=== PATIENT | female | born 2000 | race Hispanic/Latino ===

== ENCOUNTER → 2023-02-28 16:56 | Outpatient (CLI) | payer OTHER, SELFPAY ==
--- NOTE | 2023-02-28 16:59 | DI.US.S_ITS ---
PROCEDURE: US OB <= 14 WEEKS FETUS INDICATIONS: dating and viability, irregular menses OUTSIDE/PRIOR DATING DATA: Last menstrual period (LMP): 12/28/2022. LMP-based estimated date of delivery (ANNA): 10/04/2023. First dating scan (date and location): Not applicable Estimated date of delivery (ANNA) from first dating scan: Not applicable. The calculations are made using the clinical ANNA of 10/04/2023. TECHNIQUE: Real-time scanning was performed of the fetus and maternal pelvic organs, with image documentation. Endovaginal scanning was also performed to better visualize the fetus and maternal ovaries. COMPARISON: None. FINDINGS: Embryo: Single live intrauterine consists of a pole with crown-rump length measuring 2.4 cm corresponding with a 9 week 0 day gestation. Small subchorionic hemorrhage measures 0.7 x 0.5 x 0.6 cm. Normal appearing yolk sac Heart rate: 180 beats per minute Maternal organs: Right ovarian hemorrhagic cyst measures 1.9 x 1.7 x 1.5 cm IMPRESSION: Single live intrauterine consistent with 9 week 0 day gestation. Small perigestational bleed measures 0.7 x 0.5 cm Approved by: Nash Strong M.D. on 03/01/2023 at 17:10
== END ==
PROVIDERS: Referring Provider Obstetrics & Gynecology; Visit Provider Obstetrics & Gynecology
DX: O46.8X1 Other antepartum hemorrhage, first trimester (principal); Z3A.09 9 weeks gestation of pregnancy
CPT/HCPCS: 76801; 76817

== ENCOUNTER 2023-03-04 17:17 | Emergency (ER) | payer OTHER, SELFPAY ==
[2023-03-04 17:49] VITALS: BP 133/72; PULSE 76; RESP 16; TEMP 36.8; O2SAT 99; BMI 24.7
[2023-03-04 19:21] LABS: Add Manual Diff / Slide Review NO; Basophils Absolute Auto 100 /uL (0-100); Basophils Percent Auto 0.9 % (0-2); Eosinophils Absolute Auto 0 /uL (0-450); Eosinophils Percent Auto 0.4 % (2-4); Hematocrit 40.6 % (36-46); Hemoglobin 14.2 g/dL (12.0-16.0); Lymphocytes Absolute Auto 1600 /uL (1100-4500); Lymphocytes Percent Auto 16.8 % (25-40); Mean Corpuscular Hemoglobin 29.3 PG (26-34); Mean Corpuscular Volume 83.9 fL (80-100); Monocytes Absolute Auto 400 /uL (0-900); Neutrophils Absolute Auto 7700 /uL (1500-7000); Neutrophils Percent Auto 77.9 % (50-75); Platelet Count 245 X10^3/uL (150-400); Red Blood Cell Count 4.84 X10^6/uL (4.0-5.2); Red Cell Distribution Width 12.6 % (11.6-14.8); White Blood Cell Count 9.8 X10^3/uL (4.5-11.0)
--- NOTE | 2023-03-04 19:35 | PC.NURSE ---
recvd to Rm 8
[2023-03-04 19:38] LABS: Alanine Aminotransferase 14 IU/L (<35); Albumin 4.2 g/dL (3.5-5.0); Albumin Globulin Ratio 1.2 (1.0-2.8); Alkaline Phosphatase 48 U/L (38-126); Aspartate Aminotransferase 33 IU/L (14-36); BUN Creatinine Ratio 16.7 (6-22); Bilirubin Total 0.5 mg/dL (0.2-1.3); Blood Urea Nitrogen 7 mg/dL (7-17); Calcium 9.6 mg/dL (8.4-10.2); Carbon Dioxide 26 mmol/L (22-32); Chloride 101 mmol/L (98-107); Estimated Glomerular Filt Rate > 60 mL/min (>60); Globulin 3.4 g/dL (1.7-4.1); Glucose 100 mg/dL (70-100); HEMOLYSIS < 15 (0-50); Lipase 38 U/L (23-300); Potassium 3.8 mmol/L (3.4-5.1); Sodium 135 mmol/L (137-145); Total Protein 7.6 g/dL (6.3-8.2)
--- NOTE | 2023-03-04 20:13 | ED.GENADULT ---
HPI - General Adult General Chief complaint: OB/Uterine Contractions Stated complaint: 9 wks , severe cramping, Time Seen by Provider: 03/04/23 20:12 Source: patient Mode of arrival: Family Vehicle History of Present Illness HPI narrative: 23-year-old woman 9 weeks complains of lower abdominal cramping no bleeding and today noted heartburn, chest pain some pain under the right breast. Recent antibiotic course for urinary tract infection. Her was just diagnosed a couple of days ago and she is not yet decided if this is that she is going to continue. She talked to her OBGYN today who recommended coming to the emergency department because of the pelvic cramping and some pain radiating up into the right chest. She notes that she has been having trouble with nausea and vomiting. Has been constipated but did have a bowel movement today. She has not noticed any vaginal discharge or bleeding. She is not currently having any urinary tract symptoms. Related Data Allergies Allergy/AdvReac Type Severity Reaction Status Date / Time No Known Drug Allergies Allergy Verified 03/04/23 17:53 Review of Systems Constitutional Comments: Pertinent positive and negative findings as per HPI Patient History Social History Smoking Status: Never smoker Smoking Status: Never smoker Substance Use Type: does not use Exam Initial Vital Signs Initial Vital Signs: Vital Signs Temperature 98.3 F 03/04/23 17:49 Pulse Rate 76 03/04/23 17:49 Respiratory Rate 16 03/04/23 17:49 Blood Pressure 133/72 03/04/23 17:49 Pulse Oximetry 99 03/04/23 17:49 Oxygen Delivery Method Room Air 03/04/23 17:49 General: Alert appropriate in no acute distress Respiratory: Able to speak in full sentences, no obvious respiratory distress Skin: No obvious rashes, warm and dry Abdomen: Nontender to palpation. No pelvic ring tenderness. No suprapubic tenderness Neurologic: Grossly intact no obvious asymmetries or abnormalities Psych: appropriate insight and affect, cooperative Bedside ultrasound shows a viable single intrauterine fetus with yolk sac still noticeable and heart rate at 162. Pictures were shared with the patient. Course Orders Ordered: ED Orders 03/04/23 18:56 EKG-12 Lead Stat 03/04/23 19:05 Complete Blood Count AUTO DIFF Stat Comprehensive Metabolic Panel Stat HCG Quantitative /Beta subunit Stat Lipase Stat Ondansetron HCl (Ondansetron 4 Mg Odt) 4 mg PO NOW PRN PRN Reason: Nausea And Vomiting Ondansetron HCl (Ondansetron 4 Mg/2 Ml Inj) 4 mg IV NOW PRN PRN Reason: Nausea And Vomiting Vital Signs Vital signs: Vital Signs - 8 hr 03/04/23 17:49 Temperature 98.3 F Pulse Rate 76 Respiratory Rate 16 Blood Pressure 133/72 Pulse Oximetry 99 Oxygen Delivery Method Room Air Medical Decision Making Lab Data 03/04/23 19:05 03/04/23 19:05 Labs: Lab Results 03/04/23 Range/Units 19:05 WBC 9.8 (4.5-11.0) X10^3/uL RBC 4.84 (4.0-5.2) X10^6/uL Hgb 14.2 (12.0-16.0) g/dL Hct 40.6 (36-46) % MCV 83.9 (80-100) fL MCH 29.3 (26-34) PG MCHC 35.0 (30-36) % RDW 12.6 (11.6-14.8) % Plt Count 245 (150-400) X10^3/uL Neut % (Auto) 77.9 H (50-75) % Lymph % (Auto) 16.8 L (25-40) % [place] % (Auto) 4.0 (3-14) % Eos % (Auto) 0.4 L (2-4) % Baso % (Auto) 0.9 (0-2) % Neut # (Auto) 7700 H (2088-4765) /uL Lymph # (Auto) 1600 (4119-3924) /uL [place] # (Auto) 400 (0-900) /uL Eos # (Auto) 0 (0-450) /uL Baso # (Auto) 100 (0-100) /uL Sodium 135 L (137-145) mmol/L Potassium 3.8 (3.4-5.1) mmol/L Chloride 101 (98-107) mmol/L Carbon Dioxide 26 (22-32) mmol/L BUN 7 (7-17) mg/dL Creatinine 0.42 L (0.52-1.04) mg/dL Estimated GFR > 60 (>60) mL/min BUN/Creatinine Ratio 16.7 (6-22) Glucose 100 (70-100) mg/dL Calcium 9.6 (8.4-10.2) mg/dL Total Bilirubin 0.5 (0.2-1.3) mg/dL AST 33 (14-36) IU/L ALT 14 (<35) IU/L Alkaline Phosphatase 48 (38-126) U/L Total Protein 7.6 (6.3-8.2) g/dL Albumin 4.2 (3.5-5.0) g/dL Globulin 3.4 (1.7-4.1) g/dL Albumin/Globulin Ratio 1.2 (1.0-2.8) Lipase 38 (23-300) U/L Urine Dip Bedside Urine Glucose Negative Bedside Urine Bilirubin - Negative Bedside Urine Ketone - Negative Urine Specific [place] 1.010 Bedside Urine Occult Blood - Negative Bedside Urine pH 6.5 Bedside Urine Protein - Negative Bedside Urine Urobilinogen - Negative Bedside Urine Nitrite - Negative Bedside Urine Leukocytes - Negative Esterase Point of care testing: Urine Dip Bedside Urine Glucose Negative Bedside Urine Bilirubin - Negative Bedside Urine Ketone - Negative Urine Specific [place] 1.010 Bedside Urine Occult Blood - Negative Bedside Urine pH 6.5 Bedside Urine Protein - Negative Bedside Urine Urobilinogen - Negative Bedside Urine Nitrite - Negative Bedside Urine Leukocytes - Negative Esterase MDM Narrative Medical decision making narrative: CC: 9 weeks , lower abdominal cramping Complicating co-morbidities: Patient just became aware of her within the last week Data collected from: patient, 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 Bedside ultrasound shows Dukes fetus with a heart rate at 162 Lab Test results independently reviewed as above. Pertinent findings: Point of care urinalysis shows no evidence of urinary tract infection CBC is unremarkable Chemistries are reassuring Discussion: 23-year-old at 9 weeks new diagnosis, constipation nausea and vomiting consistent with early symptoms. She is taking vitamin she does have nausea medication at home. Reassurance is given regarding blood work and bedside ultrasound done today. I suspect that her symptoms are related to constipation and we talked about diet changes as she is able to and adding MiraLax daily. Reassurance is given. Questions are answered and she is safe for discharge Discharge Plan Departure Patient Disposition: Home Clinical Impression: Abdominal cramping Qualifiers: Weeks of gestation: 9 weeks Qualified Code(s): Z3A.09 - 9 weeks gestation of Instructions: DI for Miscarriage, DI for -- Discomforts and Remedies Activity Restrictions/Additional Instructions: Thank you for coming in today Your baby is around 9 weeks and is alive and healthy. Your blood work is very reassuring. There is no evidence of recurrent bladder infection. I suspect some of your symptoms may be related to constipation which is very common in early . I would encourage you to increase the volume of water that you are able to drink, you can add apple juice which can help with constipation dried fruits, applesauce. I would also recommend MiraLax. This is available [id number], the dose is enough to have soft poop. I usually recommend starting with a full cap full a powder in a big glass of water. This is absolutely safe in and just helps your stool stay softer so it is easier to poop. Please do continue your vitamins. You can use the nausea medicine that you have at home as prescribed If you do decide that this is not a that you want to continue, I would recommend [facility] [place]. The address is [address] [place] [address] in [place]. The phone number is [phone] If you find that you are getting worse or develop any new symptoms, please feel free to return to the emergency department for further evaluation. Referrals: Zuly,MD Jose A [Primary Care Provider] - Stand Alone Forms: Patient Portal/API
[2023-03-04 20:43] VITALS: BP 128/76; PULSE 77; RESP 16; O2SAT 99
== END 2023-03-04 20:46 | disposition home or self-care (01) ==
PROVIDERS: Emergency Medicine; Emergency Provider Emergency Medicine
DX: O26.91 Pregnancy related conditions, unspecified, first trimester (principal); R10.9 Unspecified abdominal pain; Z3A.09 9 weeks gestation of pregnancy
CPT/HCPCS: 36415; 80053; 81003; 83690; 84702; 85025; 99283

== ENCOUNTER → 2023-04-12 14:49 | Outpatient (CLI) | payer OTHER, SELFPAY ==
[2023-04-12 16:04] LABS: Add Manual Diff / Slide Review NO; Basophils Absolute Auto 0 /uL (0-100); Basophils Percent Auto 0.3 % (0-2); Eosinophils Absolute Auto 0 /uL (0-450); Eosinophils Percent Auto 0.3 % (2-4); Hematocrit 39.3 % (36-46); Hemoglobin 13.8 g/dL (12.0-16.0); Lymphocytes Absolute Auto 1400 /uL (1100-4500); Lymphocytes Percent Auto 13.4 % (25-40); Mean Corpuscular Hemoglobin 29.5 PG (26-34); Mean Corpuscular Volume 84.3 fL (80-100); Monocytes Absolute Auto 300 /uL (0-900); Monocytes Percent Auto 3.2 % (3-14); Neutrophils Absolute Auto 8300 /uL (1500-7000); Neutrophils Percent Auto 82.8 % (50-75); Platelet Count 249 X10^3/uL (150-400); Red Blood Cell Count 4.67 X10^6/uL (4.0-5.2); Red Cell Distribution Width 12.4 % (11.6-14.8)
[2023-04-14 09:07] LABS: Varicella IgG Antibody 584 index (Immune >165)
[2023-04-16 19:24] LABS: Hepatitis B Surface Antigen NEGATIVE s/c (NEGATIVE)
[2023-04-16 19:31] LABS: HIV 1 & 2 Ab/Ag 4th Gen Combo NEGATIVE (NEGATIVE); Hep C Virus Ab w/Reflex Quant NEGATIVE s/c (NEGATIVE)
[2023-04-17 02:36] LABS: RPR Screen Non Reactive (Non Reactive)
== END ==
PROVIDERS: Referring Provider Obstetrics & Gynecology; Visit Provider Obstetrics & Gynecology
DX: Z34.01 Encounter for supervision of normal first pregnancy, first trimester (principal)
CPT/HCPCS: 36415; 80055; 86787; 86803; 86850; 86900; 86901; 87086; 87389

== ENCOUNTER 2023-05-04 15:37 | Emergency (ER) | payer OTHER, SELFPAY ==
[2023-05-04] VITALS (8 sets, daily range): BP systolic 119–148; BP diastolic 66–93; PULSE 74–93; RESP 18; TEMP 36.4; O2SAT 98–100; BMI 24.7
[2023-05-04 17:25] LABS: Bacteria Urine None Seen; RBC Urine None Seen (0-5/HPF); Squamous Epithelial Cell Urine 0-1 /HPF (0-5/HPF); WBC Urine 0-1/HPF (0-5/HPF)
[2023-05-04 17:26] LABS: Culture Indicated Urine Cult Not Indicated
--- NOTE | 2023-05-04 17:43 | DI.US.S_ITS ---
PROCEDURE: US OB LIMITED INDICATIONS: CRAMPING OUTSIDE/PRIOR DATING DATA: Last menstrual period (LMP): 12/28/2022 LMP-based estimated date of delivery (ANNA): 10/04/2023 First dating scan (date and location): 02/28/2023 Estimated date of delivery (ANNA) from first dating scan: 10/03/2023 TECHNIQUE: Real-time scanning was performed of the fetus, with image documentation. Endovaginal scanning: Was not performed COMPARISON: None. FINDINGS: A single living intrauterine gestation is present. Presentation: Vertex Placenta: Placental position is anterior, without previa. Amniotic fluid index: 14.4 cm, normal range is 5-24 cm. Single deepest vertical pocket is 0.1 cm. heart rate: 152 beats per minute. Maternal cervical canal: 3.7 cm long. Normal lower limit is 2.5 cm. Clinically estimated gestational age: 18 weeks 1 day IMPRESSION: Live intrauterine without evidence of placental abruption Dictated by: Aldo Clemente M.D. on 05/04/2023 at 17:39 Approved by: Aldo Clemente M.D. on 05/04/2023 at 17:43
[2023-05-04] MEDS: SODIUM CHLORIDE 0.9% 1,000 ML 1000 ML IV (18:00)
[2023-05-04 18:11] LABS: Add Manual Diff / Slide Review NO; Basophils Absolute Auto 100 /uL (0-100); Basophils Percent Auto 0.6 % (0-2); Eosinophils Absolute Auto 100 /uL (0-450); Eosinophils Percent Auto 0.6 % (2-4); Hematocrit 38.8 % (36-46); Hemoglobin 13.2 g/dL (12.0-16.0); Lymphocytes Absolute Auto 1700 /uL (1100-4500); Lymphocytes Percent Auto 18.6 % (25-40); Mean Corpuscular HGB Conc 34.1 % (30-36); Mean Corpuscular Volume 85.2 fL (80-100); Monocytes Absolute Auto 300 /uL (0-900); Monocytes Percent Auto 3.6 % (3-14); Neutrophils Absolute Auto 6800 /uL (1500-7000); Neutrophils Percent Auto 76.6 % (50-75); Platelet Count 242 X10^3/uL (150-400); Red Blood Cell Count 4.56 X10^6/uL (4.0-5.2); Red Cell Distribution Width 12.9 % (11.6-14.8); White Blood Cell Count 8.9 X10^3/uL (4.5-11.0)
[2023-05-04 18:21] LABS: Alanine Aminotransferase 14 IU/L (<35); Albumin 3.6 g/dL (3.5-5.0); Albumin Globulin Ratio 1.1 (1.0-2.8); Alkaline Phosphatase 51 U/L (38-126); Aspartate Aminotransferase 24 IU/L (14-36); BUN Creatinine Ratio 13.5 (6-22); Bilirubin Total 0.4 mg/dL (0.2-1.3); Blood Urea Nitrogen 5 mg/dL (7-17); Calcium 9.1 mg/dL (8.4-10.2); Carbon Dioxide 24 mmol/L (22-32); Chloride 104 mmol/L (98-107); Estimated Glomerular Filt Rate > 60 mL/min (>60); Globulin 3.2 g/dL (1.7-4.1); Glucose 80 mg/dL (70-100); HEMOLYSIS < 15 (0-50); Lipase 51 U/L (23-300); Potassium 3.8 mmol/L (3.4-5.1); Sodium 134 mmol/L (137-145); Total Protein 6.8 g/dL (6.3-8.2)
--- NOTE | 2023-05-04 18:40 | ED_ITS ---
HPI - General Chief complaint: OB/Uterine Contractions Stated complaint: 18wks , pain in adb, chest, vagina and leg Time Seen by Provider: 05/04/23 17:43 Source: patient Mode of arrival: Family Vehicle Limitations: no limitations History of Present Illness HPI Narrative: Patient 23-year-old female presenting today with abdominal pain. She is currently 18 weeks . She reports that she started having some bilateral lower lumbar pain kind of radiating around to the left side. She felt like she was having some cramping. No vaginal bleeding. She has had persistent nausea no worsening vomiting. No fever. She is followed by Dr. Jon WALDRON Related Data Home Medications Medication Instructions Recorded Confirmed vit no.95-ferrous 1 tab PO DAILY 03/08/23 04/12/23 fumarate 28 mg-folic acid 800 mcg tablet ( Multivitamins) Allergies Allergy/AdvReac Type Severity Reaction Status Date / Time No Known Drug Allergies Allergy Verified 04/12/23 14:10 Exam Initial Vital Signs Initial Vital Signs: Vital Signs Temperature 97.6 F 05/04/23 16:03 Pulse Rate 74 05/04/23 16:03 Respiratory Rate 18 05/04/23 16:03 Blood Pressure 131/74 05/04/23 16:03 Pulse Oximetry 98 05/04/23 16:03 Oxygen Delivery Method Room Air 05/04/23 16:03 GENERAL: Alert 23-year-old female and in no acute distress. HEENT: Head atraumatic,EOMI, pupils reactive, face symmetric, moist mucous membranes CARDIOVASCULAR: Regular rate and rhythm without murmurs, rubs or gallops. RESPIRATORY: Breath sounds equal bilaterally, no wheezes rales or rhonchi. ABDOMEN: Soft, gravid no significant tenderness no right-sided pain no right upper quadrant pain mild left lower quadrant pain BACK: Mild lower lumbar pain no vertebral tenderness no step-off : No CVA tenderness EXTREMITIES: Normal range of motion, no clubbing or edema. Neurovascularly intact NEUROLOGICAL: Alert and oriented x4.Normal gait and speech. SKIN: Warm, dry, no laceration, no petechiae, no rashes or lesions. Course Orders Ordered: ED Orders 05/04/23 16:50 Urine Microscopic Stat 05/04/23 17:43 US OB limited Stat 05/04/23 18:03 CBC Auto Diff [Complete Blood Count AUTO DIFF] Stat CMP [Comprehensive Metabolic Panel] Stat Lipase Stat Discontinued Medications Acetaminophen (Acetaminophen 325 Mg Tablet) 975 mg PO NOW ONE Stop: 05/04/23 17:44 Last Admin: 05/04/23 19:05 Dose: 975 mg Documented By: SVETLANA Sodium Chloride (Normal Saline 0.9%) 1,000 mls @ 1,000 mls/hr IV BOLUS ONE Stop: 05/04/23 18:42 Last Admin: 05/04/23 18:00 Dose: 1,000 mls/hr Documented By: SVETLANA Vital Signs Vital signs: Vital Signs - 8 hr 05/04/23 16:03 05/04/23 17:37 05/04/23 17:37 Temperature 97.6 F Pulse Rate 74 74 Respiratory Rate 18 Blood Pressure 131/74 122/66 Pulse Oximetry 98 100 Oxygen Delivery Method Room Air 05/04/23 18:00 05/04/23 18:54 05/04/23 18:55 Temperature Pulse Rate 77 85 85 Respiratory Rate Blood Pressure Pulse Oximetry 100 100 100 Oxygen Delivery Method 05/04/23 18:55 05/04/23 19:00 05/04/23 19:00 Temperature Pulse Rate 86 Respiratory Rate Blood Pressure 132/82 119/67 Pulse Oximetry 100 Oxygen Delivery Method 05/04/23 19:11 05/04/23 19:11 05/04/23 19:30 Temperature Pulse Rate 93 H Respiratory Rate Blood Pressure 148/75 H 135/93 H Pulse Oximetry 100 Oxygen Delivery Method 05/04/23 19:30 Temperature Pulse Rate 78 Respiratory Rate Blood Pressure Pulse Oximetry 100 Oxygen Delivery Method MDM - OB/Uterine Contractions Lab Data 05/04/23 18:03 05/04/23 18:03 Labs: Lab Results 05/04/23 05/04/23 Range/Units 16:50 18:03 WBC 8.9 (4.5-11.0) X10^3/uL RBC 4.56 (4.0-5.2) X10^6/uL Hgb 13.2 (12.0-16.0) g/dL Hct 38.8 (36-46) % MCV 85.2 (80-100) fL MCH 29.0 (26-34) PG MCHC 34.1 (30-36) % RDW 12.9 (11.6-14.8) % Plt Count 242 (150-400) X10^3/uL Neut % (Auto) 76.6 H (50-75) % Lymph % (Auto) 18.6 L (25-40) % [place] % (Auto) 3.6 (3-14) % Eos % (Auto) 0.6 L (2-4) % Baso % (Auto) 0.6 (0-2) % Neut # (Auto) 6800 (1635-3716) /uL Lymph # (Auto) 1700 (6269-3952) /uL [place] # (Auto) 300 (0-900) /uL Eos # (Auto) 100 (0-450) /uL Baso # (Auto) 100 (0-100) /uL Sodium 134 L (137-145) mmol/L Potassium 3.8 (3.4-5.1) mmol/L Chloride 104 (98-107) mmol/L Carbon Dioxide 24 (22-32) mmol/L BUN 5 L (7-17) mg/dL Creatinine 0.37 L (0.52-1.04) mg/dL Estimated GFR > 60 (>60) mL/min BUN/Creatinine Ratio 13.5 (6-22) Glucose 80 (70-100) mg/dL Calcium 9.1 (8.4-10.2) mg/dL Total Bilirubin 0.4 (0.2-1.3) mg/dL AST 24 (14-36) IU/L ALT 14 (<35) IU/L Alkaline Phosphatase 51 (38-126) U/L Total Protein 6.8 (6.3-8.2) g/dL Albumin 3.6 (3.5-5.0) g/dL Globulin 3.2 (1.7-4.1) g/dL Albumin/Globulin Ratio 1.1 (1.0-2.8) Lipase 51 (23-300) U/L Urine RBC None seen (0-5/HPF) Urine WBC 0-1/hpf (0-5/HPF) Ur Squamous Epith Cells 0-1 /hpf (0-5/HPF) Urine Bacteria None seen (None) Ur Culture Indicated? Cult not indicated Urine Dip Bedside Urine Glucose Negative Bedside Urine Bilirubin - Negative Bedside Urine Ketone +/- 5 Urine Specific [place] 1.020 Bedside Urine Occult Blood - Negative Bedside Urine pH 6.5 Bedside Urine Protein - Negative Bedside Urine Urobilinogen - Negative Bedside Urine Nitrite - Negative Bedside Urine Leukocytes - Negative Esterase MDM Narrative Medical decision making narrative: Patient 23-year-old female male 18 weeks presenting today with some abdominal pain and back pain. She is having some mild lower back pain no significant CVA tenderness. Some mild left lower quadrant pain. Vitals are stable not hypertensive tachycardic or febrile Blood work reviewed, Urinalysis is negative for infection, no leukocytosis anemia sodium slightly low 134 but stable no PADMINI Ultrasound: Heart rate 152, live IUP no evidence placental abruption Patient received 1 L of IV fluid received some Tylenol. I suspect she may be having some discomfort. Low suspicion for nephrolithiasis she has no hematuria she has bilateral pain not necessarily CVA tenderness but lower lumbar pain. Discharge Plan Departure Patient Disposition: Home Clinical Impression: Abdominal cramping affecting Instructions: DI for -- Discomforts and Remedies Activity Restrictions/Additional Instructions: *You have been diagnosed with abdominal pain *What to do: At this time continue to stay hydrated as best you can. Baby looks healthy. No evidence of infection. *Continue to take medications as directed Tylenol 1000 mg every 6 hours if needed for [id number] pain *Follow up with your primary care provider in 2-3 days or call [phone] *Return to ER if you should have increasing pain persistent vomiting vaginal bleeding or any new, worsening or concerning symptoms Prescriptions: No Action PNV cmb#95-ferrous fumarate-FA [ Multivitamins] 28 mg iron- 800 mcg tablet 1 tab PO DAILY Referrals: ProviderThao [Primary Care Provider] - Isael Webb MD [Physician] - Stand Alone Forms: Patient Portal/API
--- NOTE | 2023-05-04 18:54 | PC.NURSE ---
Pt reports 1st , no complications. OB visit in [place] an upcoming visit in Apr 2023. C/O suprapubic cramping since 12p today, denies vaginal bleeding.
[2023-05-04] MEDS: ACETAMINOPHEN 325 MG TABLET 975 MG PO (19:05)
== END 2023-05-04 20:02 | disposition home or self-care (01) ==
PROVIDERS: Emergency Medicine; Emergency Provider Emergency Medicine
DX: O26.92 Pregnancy related conditions, unspecified, second trimester (principal); R10.9 Unspecified abdominal pain; Z3A.18 18 weeks gestation of pregnancy
CPT/HCPCS: 76815; 80053; 81003; 81015; 83690; 85025; 99284

== ENCOUNTER → 2023-05-10 15:38 | Outpatient (CLI) | payer OTHER, SELFPAY ==
[2023-05-14 20:36] LABS: AFP Value 39.9 ng/mL (.); Insulin Dep Diabetes No (.); OSBR Risk 1IN 10000 (.); Results Report (.); Test Results *Screen Negative* (.)
== END ==
LOC: LAB 15:39
PROVIDERS: Referring Provider Obstetrics & Gynecology; Visit Provider Obstetrics & Gynecology
DX: Z34.02 Encounter for supervision of normal first pregnancy, second trimester (principal); Z3A.19 19 weeks gestation of pregnancy
CPT/HCPCS: 36415; 82105

== ENCOUNTER → 2023-05-29 07:59 | Outpatient (CLI) | payer OTHER, SELFPAY ==
--- NOTE | 2023-05-29 08:00 | DI.US.S_ITS ---
PROCEDURE: US OB >= 14 WEEKS FETUS INDICATIONS: 20 week anatomy scan OUTSIDE/PRIOR DATING DATA: Last menstrual period (LMP): 12/28/2022. LMP-based estimated date of delivery (ANNA): 10/04/2023. First dating scan (date and location): 02/28/2023. Estimated date of delivery (ANNA) from first dating scan: 10/03/2023. The calculations are made using the clinical ANNA of 10/04/2023. TECHNIQUE: Real-time scanning was performed of the fetus, with image documentation and biometric measurements. COMPARISON: [facility], OB LIMITED, 05/04/2023, 18:10. [facility], OB <= 14 WEEKS FETUS, 02/28/2023, 17:11. FINDINGS: General: A single living intrauterine gestation is present. Presentation: Breech. Placenta: Placental position is anterior , without previa. Amniotic fluid index: 17.2 cm, normal range is 5-24 cm. Single deepest vertical pocket is 5.2 cm. heart rate: 158 beats per minute. Maternal cervical canal: 3.7 cm long. Normal lower limit is 2.5 cm. biometrics: Biparietal diameter: 5.4 cm 22 weeks 3 days Head circumference: 20.3 cm 22 weeks 3 days Abdominal circumference: 17.3 cm 22 weeks 2 days Femur length: 3.6 cm 21 weeks 2 days Clinically estimated gestational age: 22 weeks 5 days Composite gestational age from present scan: 22 weeks 1 day Estimated weight and percentile: 359 g 53rd percentile Anatomic survey: Neuro: Ventricles are non-dilated at less than 10 mm. Cisterna magna is normal at 3-11 mm. Cerebellum is normal in size and morphology. Nuchal skin fold: Measures 6.9 mm. Face: Nose and lips, facial profile are normal. Spine: No evidence for spina bifida. Heart: 4-chambered heart is present, with normal ventricular outflow tracts. Diaphragm: Diaphragm is intact. Stomach: Left-sided stomach is present. Kidneys: No hydronephrosis. Normal is less than 5 mm in 2nd trimester, less than 7 mm in 3rd trimester. Cord: 3-vessel cord has orthotopic insertion. Bladder: Normal in size. Extremities: All 4 extremities identified. IMPRESSION: Single live intrauterine with ultrasound gestational age of 22 weeks 1 day. Nuchal skin fold is slightly prominent. This is nonspecific and noted that gestational age is beyond the reference age of approximately 20 weeks. Clinical correlation is recommended. Anatomy is within normal limits. We strive to produce accurate, complete, and clear reports of imaging services. To assist us in improving patient care, this report was composed using standard report templates and voice recognition software. Therefore, it may contain abnormal punctuation, insertions and/or omissions. Occasional wrong-word or sound-alike substitutions may occur. Though we review the report and make efforts to correct it, we do recommend that the report be read carefully in proper context to recognize any text inaccuracies. Dictated by: Elisa Madrid M.D. on 05/29/2023 at 15:35 Approved by: Elisa Madrid M.D. on 05/29/2023 at 15:47
== END ==
LOC: US 07:59
PROVIDERS: Referring Provider Obstetrics & Gynecology; Visit Provider Obstetrics & Gynecology
DX: Z34.02 Encounter for supervision of normal first pregnancy, second trimester (principal); Z3A.22 22 weeks gestation of pregnancy
CPT/HCPCS: 76811

== ENCOUNTER → 2023-07-05 09:15 | Outpatient (CLI) | payer OTHER, SELFPAY ==
[2023-07-05 11:05] LABS: Hematocrit 34.7 % (36-46)
[2023-07-05 11:47] LABS: GTT (PREG) 1 Hour PP 50gm Dose 102 mg/dL (76-139)
== END ==
PROVIDERS: Referring Provider Obstetrics & Gynecology; Visit Provider Obstetrics & Gynecology
DX: Z34.02 Encounter for supervision of normal first pregnancy, second trimester (principal); Z3A.26 26 weeks gestation of pregnancy
CPT/HCPCS: 36415; 82950; 85014; 85018

== ENCOUNTER 2023-07-08 11:27 | Outpatient (CLI) | payer OTHER, SELFPAY ==
[2023-07-08 11:57] LABS: Appearance Urine UA CLEAR; Bilirubin Urine UA NEGATIVE (NEGATIVE); Color Urine UA YELLOW; Glucose Urine UA NEGATIVE (Negative); Ketones Urine UA TRACE (NEGATIVE); Leukocyte Esterase Urine UA NEGATIVE (NEGATIVE); Nitrite Urine UA NEGATIVE (Negative); Occult Blood Urine UA NEGATIVE (Negative); Protein Urine UA NEGATIVE (Negative); Urobilinogen Urine UA 0.2 E.U./dL (0.2)
[2023-07-08 11:59] LABS: pH Urine UA 6.5 (4.5-8.0)
[2023-07-08 12:00] LABS: Bacteria Urine None Seen; Culture Indicated Urine Cult Not Indicated; RBC Urine None Seen (0-5/HPF); Squamous Epithelial Cell Urine None Seen (0-5/HPF); Urine Volume 10mL (spun); WBC Urine None Seen (0-5/HPF)
== END 2023-07-08 12:53 | disposition home or self-care (01) ==
LOC: LABOR 12:36 → OB 07-09 09:49
PROVIDERS: Family Medicine; Referring Provider Obstetrics & Gynecology; Visit Provider Obstetrics & Gynecology
DX: O26.892 Other specified pregnancy related conditions, second trimester (principal); R10.9 Unspecified abdominal pain; R42 Dizziness and giddiness; Z3A.27 27 weeks gestation of pregnancy
CPT/HCPCS: 59025; 81001; G0378; G0379

== ENCOUNTER 2023-07-17 08:59 | Observation (INO) | payer OTHER, SELFPAY ==
[2023-07-17 10:05] LABS: Appearance Urine UA CLEAR; Bilirubin Urine UA NEGATIVE (NEGATIVE); Color Urine UA YELLOW; Glucose Urine UA 1+ g/dL (Negative); Ketones Urine UA TRACE (NEGATIVE); Leukocyte Esterase Urine UA NEGATIVE (NEGATIVE); Nitrite Urine UA NEGATIVE (Negative); Occult Blood Urine UA NEGATIVE (Negative); Protein Urine UA NEGATIVE (Negative); Urobilinogen Urine UA 0.2 E.U./dL (0.2)
--- NOTE | 2023-07-17 10:11 | PM.OBTRLD ---
Visit Information Visit Information Date of evaluation: 07/17/23 Primary OB Provider: Isael Webb On-call OB Provider: Isael Webb Reason for Evaluation: Yes other [facility] Surgical History (Updated 03/08/23 @ 13:38 by Kanika Kay, RN) H/O tympanostomy Family History (Updated 03/08/23 @ 13:40 by Kanika Kay, RN) Mother Anemia Hypertension Sister Anemia Hypertension Grandmother Cancer Social History marital status: unmarried,single number of children: 0 household members: none lives independently: Yes caregiver/support person: No housing: other ([employer] ) pets and animals: No education level: high school occupational status: employed (active duty [employer]) current occupational exposures/hazards: No special alisha needs: No travel history: over 6 months ago seatbelt use: always water heater temp set < 120 deg: Yes working smoke detector in home: Yes fire extinguisher in home: Yes carbon monox detector in home: Yes firearms in home: No do you feel safe at home: Yes Smoking Status: Former smoker Tobacco: How many years used: 2 second hand exposure: No alcohol intake: former (I did go rober crazy when I turned 23 (last month)) substance use type: does not use during the past year weight has: increased > 10 lbs well-balanced diet: rarely or never daily servings fruits/ve-1 caffeine: No Type(s) of exercise: none
[2023-07-17 10:26] LABS: Amorphous Sediment Urine 2+; Bacteria Urine None Seen; Culture Indicated Urine Cult Not Indicated; RBC Urine None Seen (0-5/HPF); Squamous Epithelial Cell Urine >30 /HPF (0-5/HPF); Urine Volume 10mL (spun); WBC Urine None Seen (0-5/HPF)
== END 2023-07-17 10:52 | disposition home or self-care (01) ==
PROVIDERS: Admitting Provider Obstetrics & Gynecology; Referring Provider Obstetrics & Gynecology; Visit Provider Obstetrics & Gynecology
DX: Z36.9 Encounter for antenatal screening, unspecified (principal)
CPT/HCPCS: 59025; 81001; 87086; G0378; G0379

== ENCOUNTER 2023-08-21 14:07 | Outpatient (CLI) | payer OTHER, SELFPAY ==
[2023-08-21 15:45] LABS: Fetal Fibronectin Negative
== END 2023-08-21 15:08 | disposition home or self-care (01) ==
LOC: OB 08-22 14:04
PROVIDERS: Referring Provider Obstetrics & Gynecology; Visit Provider Obstetrics & Gynecology
DX: O60.03 Preterm labor without delivery, third trimester (principal); Z3A.33 33 weeks gestation of pregnancy
CPT/HCPCS: 59025; 82731; G0378; G0379

== ENCOUNTER → 2023-09-06 16:30 | Outpatient (CLI) | payer OTHER, SELFPAY ==
[2023-09-07 14:42] LABS: Strep Grp B PCR NEG for Grp B Strep
== END ==
PROVIDERS: Visit Provider Obstetrics & Gynecology
DX: Z34.03 Encounter for supervision of normal first pregnancy, third trimester (principal); Z3A.36 36 weeks gestation of pregnancy
CPT/HCPCS: 87653

== ENCOUNTER 2023-09-22 14:13 | Outpatient (CLI) | payer OTHER, SELFPAY | END 2023-09-22 15:01 | disposition home or self-care (01) | LOC: OB 09-30 15:07 | PROVIDERS: Referring Provider Obstetrics & Gynecology; Visit Provider Obstetrics & Gynecology | DX: O47.1 False labor at or after 37 completed weeks of gestation (principal); Z3A.38 38 weeks gestation of pregnancy | CPT/HCPCS: 59025; G0378; G0379 ==

== ENCOUNTER 2023-09-23 10:33 | Inpatient (IN) | payer OTHER, SELFPAY ==
[2023-09-23] MEDS: LACTATED RINGERS 1,000 ML 1000 ML IV (11:34)
--- NOTE | 2023-09-23 11:44 | P.PCN_ITS ---
[facility] Pre-procedure Procedure: Continuous Lumbar Epidural for L&D Attending OB provider: Donna Pardo PMH/ROS narrative: term labor, no medical or obstetric compclications. ASA Class: II Medications: Current Medications Generic Name Dose Route Start Last Admin Trade Name Freq PRN Reason Stop Dose Admin Carboprost Tromethamine 250 mcg 09/23/23 11:34 Carboprost 250 Mcg/Ml Ampul IM Q90M PRN Bleeding Fentanyl 100 mcg 09/23/23 11:34 Fentanyl 100 Mcg/2 Ml Inj IV Q1H PRN Pain, Severe (7-10) Lactated Ringer's 1,000 mls @ 1,000 mls/hr 09/23/23 11:33 09/23/23 11:34 Lactated Ringers IV 09/23/23 12:32 1,000 mls/hr NOW ONE Administration Lactated Ringer's 1,000 mls @ 100 mls/hr 09/23/23 11:45 Lactated Ringers IV CONT GURPREET Oxytocin/Lactated Ringer's 30 unit in 500 mls @ 200 mls/hr 09/23/23 11:34 Oxytocin Premix IV CONT PRN Bleeding Protocol Tranexamic Acid 1,000 mg/ 100 mls @ 200 mls/hr 09/23/23 11:34 Sodium Chloride IV NOW PRN Bleeding Lactated Ringer's 500 mls @ 1,000 mls/hr 09/23/23 11:34 Lactated Ringers IV 09/23/23 12:03 BOLUS ONE Lactated Ringer's 500 mls @ 1,000 mls/hr 09/23/23 11:34 Lactated Ringers IV 09/23/23 12:03 BOLUS ONE Lidocaine HCl 20 ml 09/23/23 11:34 Lidocaine 1% 20 Ml INJ INTRA-OP PRN Post Delivery Methylergonovine Maleate 0.2 mg 09/23/23 11:34 Methylergonovine 0.2 Mg Tablet PO Q6HR PRN Heavy Bleeding Methylergonovine Maleate 0.2 mg 09/23/23 11:34 Methylergonovine 0.2 Mg/Ml Vial IM NOW PRN Bleeding Misoprostol 800 mcg 09/23/23 11:34 Misoprostol 200 Mcg Tablet OH NOW PRN Bleeding Misoprostol 400 mcg 09/23/23 11:34 Misoprostol 200 Mcg Tablet SL NOW PRN Bleeding Naloxone HCl 0.2 mg 09/23/23 11:34 Naloxone 0.4 Mg/Ml Vial IV Q2MIN PRN Opiate Reversal Ondansetron HCl 4 mg 09/23/23 11:34 Ondansetron 4 Mg/2 Ml Inj IV Q4HR PRN Nausea And Vomiting Oxytocin 10 unit 09/23/23 11:34 Oxytocin 10 Unit/Ml Vial IM NOW PRN Bleeding Sodium Chloride 10 ml 09/23/23 11:34 Sodium Chloride 0.9% Flush IV PRN PRN Flush Terbutaline Sulfate 0.25 mg 09/23/23 11:34 Terbutaline 1 Mg/Ml Vial SUBCUT 09/23/23 11:35 NOW ONE Terbutaline Sulfate 0.25 mg 09/23/23 11:34 Terbutaline 1 Mg/Ml Vial SUBCUT 09/23/23 11:35 NOW ONE Allergies: Allergies Allergy/AdvReac Type Severity Reaction Status Date / Time No Known Drug Allergies Allergy Verified 09/13/23 14:05 Procedure Insertion date: 09/23/23 Insertion time: 12:02 Prep/Local: betadine x3 and 1% lidocaine Interspace: L3-4 Patient position: sitting Needle: 18 gauge [place] (CSE: 27g Pencan through [place], clear CSF, 1mL 0.25% bupiv MPF) Loss of resistance with: saline ARAM at (cm): 5 Catheter placed at SKIN (cm): 11 Catheter in SPACE (cm): 6 Insertion: No CSF, No Blood, No Paresthesia with insertion, No Paresthesia with injection and No Test dose reaction Initial Medications TEST DOSE time: 12:05 TEST DOSE: 1.5% lidocaine with epinephrine 1:200k (mL): 3 BOLUS DOSE time: 12:16 BOLUS DOSE (mL): 4 BOLUS DOSE med: other (infusate) Infusion INFUSION: 0.125% bupivacaine and with fentanyl 2 mcg/mL Initial rate (mL/hr): 8 Subsequent interventions: PCEA@8+4 Post-procedure Anesthesia date START: 09/23/23 Anesthesia time START: 11:48 Anesthesia date END: 09/23/23 Anesthesia time END: 17:20 Post-procedure Anesthesia Assessment: Yes CV function: HR/BP stable, Yes Resp function: RR/sat/airway adequate, Yes Post-op hydration adequate, Yes Pain control adequate, Yes Nausea & vomiting absent, Yes Temperature > 36 C, Yes Mental status appropriate and No Anesthesia complications
[2023-09-23 12:15] LABS: Add Manual Diff / Slide Review NO; Basophils Absolute Auto 0 /uL (0-100); Basophils Percent Auto 0.2 % (0-2); Eosinophils Absolute Auto 0 /uL (0-450); Eosinophils Percent Auto 0.3 % (2-4); Hematocrit 36.4 % (36-46); Hemoglobin 11.8 g/dL (12.0-16.0); Lymphocytes Absolute Auto 1800 /uL (1100-4500); Lymphocytes Percent Auto 15.6 % (25-40); Mean Corpuscular HGB Conc 32.4 % (30-36); Mean Corpuscular Hemoglobin 26.3 PG (26-34); Mean Corpuscular Volume 81.2 fL (80-100); Monocytes Absolute Auto 600 /uL (0-900); Monocytes Percent Auto 4.9 % (3-14); Neutrophils Absolute Auto 9300 /uL (1500-7000); Platelet Count 181 X10^3/uL (150-400); Red Blood Cell Count 4.48 X10^6/uL (4.0-5.2); Red Cell Distribution Width 13.5 % (11.6-14.8); White Blood Cell Count 11.8 X10^3/uL (4.5-11.0)
[2023-09-23] MEDS: LACTATED RINGERS 1,000 ML 100 ML IV (12:43)
--- NOTE | 2023-09-23 13:15 | PM.OBHP.IH.1 ---
OB HPI Date/Time Date of admission: 09/23/23 Date Patient Seen: 09/23/23 Time Patient Seen: 13:16 History of Present Condition Chief complaint: LABOR CHECK ANNA Calculator Estimated Delivery Date Method Current WG Current Estimate 10/04/23 LMP (Certain) 38w 3d Other Estimates 10/03/23 Ultrasound #1 38w 4d Estimated Gestational Age (weeks): 38+3 : 1 Para: 0 care: good care, initiated at week #, number of visits and pounds weight gain Preadmission Labs Last OB Lab Results: Blood Type O Positive 09/23/23 11:15 Antibody Screen Negative 09/23/23 11:15 Hematocrit 36.4 % (36-46) 09/23/23 11:15 Hemoglobin 11.8 g/dL (12.0-16.0) L 09/23/23 11:15 Hepatitis B Surface Antigen Negative s/c (NEGATIVE) 04/12/23 15:03 Hepatitis C Antibody Negative s/c (NEGATIVE) 04/12/23 15:03 Rubella Antibody 119.0 IU/mL (>15) 04/12/23 15:03 Varicella-Zoster IgG Antibody 584 index (Immune >165) 04/12/23 15:03 Glucose 1 Hour 102 mg/dL (76-139) 07/05/23 10:24 Group B Streptococcus (PCR) Neg for grp b strep 09/06/23 16:30 Evaluation Evaluation Baseline heart rate: 135 Variability: Moderate (11-25) monitor accelerations: Present Monitor Decelerations: Absent Contraction Frequency (minutes): 3 Uterine Contraction Intensity: Strong/Firm Status: Category l Dilation (cm): 7 Effacement (%): 100 station: -1 Position of cervix: mid Consistency: soft PFSH Surgical History (Updated 03/08/23 @ 13:38 by Kanika Kay RN) H/O tympanostomy Family History (Updated 03/08/23 @ 13:40 by Kanika Kay RN) Mother Anemia Hypertension Sister Anemia Hypertension Grandmother Cancer Social History marital status: unmarried,single number of children: 0 household members: none lives independently: Yes caregiver/support person: No housing: other ([facility] ) pets and animals: No education level: high school occupational status: employed (active duty [employer]) current occupational exposures/hazards: No special alisha needs: No travel history: over 6 months ago seatbelt use: always water heater temp set < 120 deg: Yes working smoke detector in home: Yes fire extinguisher in home: Yes carbon monox detector in home: Yes firearms in home: No do you feel safe at home: Yes Smoking Status: Unknown if ever smoked Tobacco: How many years used: 2 second hand exposure: No alcohol intake: former (I did go [employer] when I turned 23 (last month)) substance use type: does not use during the past year weight has: increased > 10 lbs well-balanced diet: rarely or never daily servings fruits/ve-1 caffeine: No Type(s) of exercise: none Meds Home Medications and Allergies Home Medications Medication Instructions Recorded Confirmed Type vit no.95-ferrous 1 tab PO DAILY 03/08/23 09/23/23 History fumarate 28 mg-folic acid 800 mcg tablet ( Multivitamins) Allergies Allergy/AdvReac Type Severity Reaction Status Date / Time No Known Drug Allergies Allergy Verified 09/13/23 14:05 OB Exam Narrative Exam Narrative: Generally: Patient is sitting up in bed, comfortable with contractions, epidural in place, acute distress Fundal height: 39 cm Estimated weight: 8-1/2 lb Extremities: No edema Objective Labs 09/23/23 11:15 Labs: Laboratory Results - last 24 hr 09/23/23 11:15 WBC 11.8 H RBC 4.48 Hgb 11.8 L Hct 36.4 MCV 81.2 MCH 26.3 MCHC 32.4 RDW 13.5 Plt Count 181 Neut % (Auto) 79.0 H Lymph % (Auto) 15.6 L [place] % (Auto) 4.9 Eos % (Auto) 0.3 L Baso % (Auto) 0.2 Neut # (Auto) 9300 H Lymph # (Auto) 1800 [place] # (Auto) 600 Eos # (Auto) 0 Baso # (Auto) 0 Blood Type O Positive Antibody Screen Negative Assessment and Plan Assessment and Plan Assessment and Plan narrative: Assessment: 23-year-old 1 para 0 at 38-,2/7 weeks gestation in active labor Comfortable with epidural Plan: AROM with clear amniotic fluid Pitocin augmentation as needed Expected management to spontaneous vaginal delivery Time Spent with Patient Total time spent with greater than 50% in coordination of care (as documented) at patient's floor/unit and/or counseling patient:: 15-24 minutes
[2023-09-23] MEDS: OXYTOCIN PREMIX 30 UNIT/500 ML PLAST..BAG 220 UNIT IV (17:17)
--- NOTE | 2023-09-23 17:44 | P.PCNOB_ITS ---
Labor & Delivery Delivery date: 09/23/23 Intrapartal Events: None Cervical ripening method: none Induction method: none Delivery augmentation: rupture of membranes Delivery monitor: external FHT and external uterine Route of delivery: Episiotomy description: None L&D Laceration Description: Labial (bilateral labial 1st degree) Delivery repair: chromic Quantitative Blood Loss: 440 Anesthesia Type: Epidural Complications: None Narrative: Patient complete and pushed for 45 minutes. At 5:10 p.m., a live male delivered spontaneously in the SANA presentation, over an intact perineum. No n uchal cord. The remainder of the body delivered without difficulty and was placed on mom's abdomen. After the cord stopped pulsing, the cord was double clamped and cut. Cord bloods were obtained. The placenta delivered intact with a three-vessel cord at 5:16 p.m.. Bilateral labial lacerations were repaired in the usual fashion with 3-0 chromic. Hemostasis was achieved. Epidural analgesia. Apgars 8 at 1 minute and 9 at 5 minutes. . weight 8 lb 5.4 oz. Mom and infant stable to recovery. [place] Baby 1: Infant gender: Male Presentation: vertex Position: Left Occiput Anterior Placenta delivery description: Spontaneous Cord Vessel Description: 3 Vessels and Clamped/Cut (after cord stopped pulsing) score (1 min): 8 score (5 min): 9 weight: 8 lb 5.4 oz Plan for aftercare: Routine care
[2023-09-23] MEDS: ACETAMINOPHEN 325 MG TABLET 650 MG PO (19:16)
[2023-09-23] MEDS: IBUPROFEN 600 MG TABLET PO (19:16)
[2023-09-23] MEDS: DERMOPLAST SPRAY 20% 60 ML 1 SPRAY TOP (19:16)
[2023-09-24] MEDS: ACETAMINOPHEN 325 MG TABLET 650 MG PO ×3 (01:45→16:03)
[2023-09-24] MEDS: IBUPROFEN 600 MG TABLET PO ×3 (01:46→16:03)
[2023-09-24 06:33] LABS: Hematocrit 30.6 % (36-46); Hemoglobin 9.9 g/dL (12.0-16.0)
[2023-09-24] MEDS: DOCUSATE 100 MG CAPSULE PO (08:27)
[2023-09-24] MEDS: PRENATAL VIT,CALC/IRON/FOLIC 1 TABLET 1 TAB PO (08:27)
--- NOTE | 2023-09-24 17:11 | P.DS_ITS ---
Discharge Providers Provider Date of admission: 09/23/23 10:33 Discharge Date: 09/24/23 Primary care physician: Thao GIULLEN Provider Consults: 09/23/23 11:36 Consult to Anesthesiology Urgent Comment: Consulting Provider: Riki Bloom Reason for consultation: Epidural 09/24/23 17:40 Consult to Geographic Information Systems Engineer Routine Comment: Discharge provider: Isael Webb MD Summary Hospital Course Date Patient Seen: 09/24/23 Time Patient Seen: 17:12 Diagnoses: Intrauterine gestation, 38+ 3 weeks, delivered by spontaneous vaginal GBS negative status Hospital Course: Xavi was admitted in active labor on 09/23/2023 and following AROM as well as placement of a continuous lumbar epidural, she delivered on the evening of 09/23/2023 a viable male with Apgars of 9/9 and a weight of 3783 g ( 8 lb 5.4 oz). Following delivery both mother and baby have done extremely well with the mother experiencing prompt return of bowel and bladder function, she is ambulating independently, tolerating a regular diet, and her pain is well controlled with oral pain medications. She will be discharged at this time to home in an afebrile normotensive condition after counseling regarding precautionary symptoms, limitations of activity, medications, and plans for follow-up which will be in 6 weeks. Medications at the time of discharge will include resumption of all pre delivery medications as well as oxycodone 5 mg every 6 hours as needed for pain, dispense 10 with no refills, and ibuprofen 600 mg p.o. q.6 hours as needed pain, dispensed 30, and refill x2. Peripartum Data Delivery Method: Natural Vaginal Laceration Description: Labial ( Bilateral, repaired with 3-0 chromic catgut suture) Episiotomy description: None Procedures: continuous lumbar epidural spontaneous vaginal delivery complications: none 1: Gender: Male Disposition of : home Status at Discharge Cognitive/behavioral status at discharge: oriented Functional status at discharge: independent ambulation Overall status at discharge: patient is progressing back to baseline Time Spent with Patient Time attestation: Total time spent providing and/or coordinating discharge services: Time spent: Less than 30 minutes Objective Labs 09/24/23 06:23 Labs: Laboratory Results - last 24 hr 09/24/23 06:23 Hgb 9.9 L Hct 30.6 L Exam Const General: cooperative and comfortable Nutritional Appearance: average body habitus Orientation: alert and oriented x3 HENMT Head: normal to inspection, atraumatic and abrasion Ears: hearing grossly normal bilaterally Face and sinus: face symmetric Eyes General: appearance normal, both eyes and all related structures Conjunctivae: conjunctivae normal Sclera: sclerae normal EOM: EOM intact bilaterally Neck Neck: normal visual inspection Resp Effort & Inspection: normal respiratory effort and able to speak in complete sentences GI Inspection: normal to inspection Palpation: soft and no hepatosplenomegaly External Female Exam: other (No significant bleeding noted) Extrem General: no calf tenderness Psych Appearance: grossly normal Mental Status: mental status grossly normal Speech and Movement: speech and movement normal Mood: congruent mood Affect: normal affect Attitude: cooperative Thought Process: normal Thought Content: normal Judgment: judgment good Discharge Plan Discharge Plan Patient Disposition: Home Provider Discharge Comment: please review the written instructions you received when you were discharged from the hospital. Your follow-up appointment will be scheduled for 6 weeks after delivery and I look forward to seeing you then. If however in the meanwhile you have any issues, concerns, or questions, please contact me either through the office phone at [phone], or via the patient portal. Discharge orders & Medications Prescriptions: New ibuprofen 600 mg Tablet 600 mg PO Q6HR PRN (Reason: Pain, Mild (1-3)) Qty: 30 2RF oxycodone 5 mg tablet 5 mg PO Q6H PRN (Reason: pain) Qty: 10 0RF Continued PNV cmb#95-ferrous fumarate-FA [ Multivitamins] 28 mg iron- 800 mcg tablet 1 tab PO DAILY Follow up/Referrals: Provider,Thao GUILLEN [Primary Care Provider] - Isael Webb MD [Physician] - 6 Weeks (Please follow up with Dr. Webb on Saturday, November 05 @ 1:30pm for your 6 week post check-up. ) Discharge Health Status Multidrug resistant organism: No MDRO Diet/Activity/Treatments Diet: Diet as Tolerated Activity: As tolerated Other treatments: [id number] Tylenol may be used for additional pain relief. [id number] stool softeners and/or MiraLax may be used as needed for constipation. Skin/Wound/Dressing Care Report to your healthcare provider any signs of infection, such as:: chills, fever, increased pain, unusual drainage and unusual redness Dressing: N/A Visit Report/Discharge Packet Instructions: DI for Labor and Delivery, Vaginal , DI for and Nipple Soreness, DI for Prescription Opioid Use Discharge Data Primary Care Provider: Thao Simmons
== END 2023-09-24 18:55 | disposition home or self-care (01) | DRG 807 ==
PROVIDERS: Admitting Provider Obstetrics & Gynecology; Referring Provider Obstetrics & Gynecology; Visit Provider Obstetrics & Gynecology
DX: O70.0 First degree perineal laceration during delivery (principal); Z37.0 Single live birth; Z3A.38 38 weeks gestation of pregnancy
CPT/HCPCS: 36415; 59050; 85014; 85018; 85025; 86850; 86900; 86901; G0379; J2590